=== PATIENT | female | born 1975 | race Two or more races ===

== ENCOUNTER 2021-01-05 21:32 | Emergency (ER) | payer MEDICAID, OTHER ==
[~2021-01-05] VITALS: Ht 167.6 cm; Wt 72.6 kg
[2021-01-05 21:32] VITALS: BP 124/70
[2021-01-05] MEDS ORDERED: PRED50TA PO (22:15)
[2021-01-05] MEDS ORDERED: DIPH50CA4 PO (22:15)
[2021-01-05] MEDS ORDERED: diphenhydrAMINE HCL 50 MG CAPSULE ONE (22:15)
[2021-01-05] MEDS ORDERED: FAMO-131 PO (22:15)
[2021-01-05] MEDS ORDERED: FAMOTIDINE (20 MG) 20 MG TABLET ONE (22:16)
[2021-01-05] MEDS ORDERED: predniSONE 10 MG TABLET ONE (22:16)
[2021-01-05] MEDS ORDERED: predniSONE 50 MG TABLET PO ONE (22:30)
[2021-01-05] MEDS ORDERED: FAMOTIDINE (20 MG) 20 MG TABLET PO ONE (22:30)
[2021-01-05] MEDS ORDERED: diphenhydrAMINE HCL 50 MG CAPSULE PO ONE (22:30)
--- NOTE | 2021-01-05 22:34 | NUR ---
Patient discharged to home in stable condition. Written and verbal after care instructions given. Patient verbalizes understanding of instruction. Pt ambulatory with a steady gait
== END 2021-01-05 22:35 | disposition home or self-care (01) ==
LOC: EDUNIT# 21:32 → ER 21:37 → EDBD 21:37 → ER 22:35
DX: L50.0 Allergic urticaria (principal); T78.49XA Other allergy, initial encounter; Z90.89 Acquired absence of other organs; X58.XXXA Exposure to other specified factors, initial encounter
CPT/HCPCS: 99284; J7512; Q0163